=== PATIENT | male | born 1990 | race Caucasian/White ===

== ENCOUNTER 2018-08-06 19:07 | Inpatient (IN) | payer OTHER ==
--- NOTE | 2018-08-07 05:39 | HP ---
CIWA Score Nausea/Vomitin (vomiting x 1) Muscle Tremors: 4-Moderate,w/Arms Extend Anxiety: 3 Agitation: 4-Moderately Restless Paroxysmal Sweats: 3 Orientation: 2-Disoriented Date<2 days Tacttile Disturbances: 0-None Auditory Disturbances: 0-None Visual Disturbances: 0-None Headache: 0-None Present CIWA-Ar Total Score: 18 - Admission Criteria OASAS Guidelines: Admission for Medically Managed Detox: Requires at least one of the followin. CIWA greater than 12 2. Seizures within the past 24 hours 3. Delirium tremens within the past 24 hours 4. Hallucinations within the past 24 hours 5. Acute intervention needed for co occurring medical disorder 6. Acute intervention needed for co occurring psychiatric disorder 7. Severe withdrawal that cannot be handled at a lower level of care (continued vomiting, continued diarrhea, abnormal vital signs) requiring intravenous medication and/or fluids 8. Admission ROS [facility] Chief Complaint: Alcohol withdrawal symptoms Allergies/Adverse Reactions: Allergies Allergy/AdvReac Type Severity Reaction Status Date / Time No Known Allergies Allergy Verified 08/07/18 05:35 History of Present Illness: 27 years old male with a long history of alcohol dependence (patient reports from age 6 years) is seeking admission to detox. Patient has been in previous detox at [facility] and reports a year of sobriety. He has medical history of hypertension. He denies suicidal ideation at this time Exam Limitations: No Limitations - Ebola screening Have you traveled outside of the country in the last 21 days: No (N) Have you had contact with anyone from an Ebola affected area: No Do you have a fever: No - Review of Systems Constitutional: Chills, Loss of Appetite, Changes in sleep, Weakness, Weight Stable EENT: reports: No Symptoms Reported Respiratory: reports: No Symptoms reported Cardiac: reports: No Symptoms Reported GI: reports: Poor Appetite, Poor Fluid Intake, Vomiting, Abdominal cramping : reports: No Symptoms Reported Musculoskeletal: reports: Back Pain Integumentary: reports: Dryness Neuro: reports: Tremors Endocrine: reports: No Symptoms Reported Hematology: reports: No Symptoms Reported Psychiatric: reports: Mood/Affect Appropiate, Orientated x3, Anxious Other Systems: Reviewed and Negative Patient History - Patient Medical History Hx Anemia: No Hx Asthma: No Hx Chronic Obstructive Pulmonary Disease (COPD): No Hx Cancer: No Hx Cardiac Disorders: No Hx Congestive Heart Failure: No Hx Hypertension: Yes (Clonidine) Hx Hypercholesterolemia: No Hx Pacemaker: No HX Cerebrovascular Accident: No Hx Seizures: No Hx Dementia: No Hx Diabetes: No Hx Gastrointestinal Disorders: No Hx Liver Disease: No Hx Genitourinary Disorders: No Hx Sexually Transmitted Disorders: No Hx Renal Disease (ESRD): No Hx Thyroid Disease: No Hx Human Immunodeficiency Virus (HIV): No Hx Hepatitis C: No Hx Depression: No Hx Suicide Attempt: No Hx Bipolar Disorder: No Hx Schizophrenia: No - Patient Surgical History Past Surgical History: Yes Hx Appendectomy: Yes (20 years ago) - PPD History Previous Implant?: Yes Documented Results: Negative w/o proof Implanted On Prior [facility] Admission?: No PPD to be Administered?: Yes - Reproductive History Patient is a Female of Child Bearing Age (11 -55 yrs old): No (male) - Smoking Cessation Smoking history: Current every day smoker Have you smoked in the past 12 months: Yes Aproximately how many cigarettes per day: 10 Hx Chewing Tobacco Use: No Initiated information on smoking cessation: Yes 'Breaking Loose' booklet given: 07/29/18 - Substance & Tx. History Hx Alcohol Use: Yes Hx Substance Use: Yes Substance Use Type: Alcohol, Cocaine, Prescribed Hx Substance Use Treatment: Yes ([facility]) - Substances abused Alcohol Substance route: Oral Frequency: Daily Amount used: [place] 1 pint Age of first use: 6 Date of last use: 08/06/18 Family Disease History - Family Disease History Family Disease History: Diabetes: Father (Alcoholic), Other: Father, Mother ( Alcoholic) Admission Physical Exam S - Vital Signs Vital Signs: Vital Signs - 24 hr 08/07/18 05:11 Temperature 97.2 F L Pulse Rate 47 L Respiratory 16 Rate Blood Pressure 147/86 - Physical General Appearance: Yes: Moderate Distress, Tremorous, Irritable, Anxious HEENTM: Yes: Within Normal Limits Respiratory: Yes: Lungs Clear, Normal Breath Sounds, No Respiratory Distress Neck: Yes: Supple, Trachea in good position Breast: Yes: Breast Exam Deferred Cardiology: Yes: Bradycardia Abdominal: Yes: Normal Bowel Sounds Genitourinary: Yes: Within Normal Limits Back: Yes: Normal Inspection Musculoskeletal: Yes: Within Normal Limits Extremities: Yes: Tremors Neurological: Yes: kettle firer II-XII NML intact, Fully Oriented, Motor Strength 5/5 Integumentary: Yes: Warm Lymphatic: Yes: Within Normal Limits Cleared for Admission [facility] - Detox or Rehab [facility] Level of Care: Medically Managed Detox Regimen/Protocol: Librium Breathalyzer - Breathalyzer Breathalyzer: 0 Vital Signs - Vital Signs Vital signs refused: No Temperature: 97.2 F Temperature source: Oral Pulse Rate: 47 Respiratory Rate: 16 Blood Pressure: 147/86 BP Location: Left Arm - Height Height: 5 ft 4 in - Weight Weight: 180 lb Weight measurement method: Standing scale - BMI Body Mass Index (BMI): 30.9 - Bowel Function Bowel Movement: No Urine Drug Screen - Test Device Lot number: [id number] Expiration date: 04/18/20 - Control Is test valid?: Yes - Results Drug screen NEGATIVE: No Urine drug screen results: THC-Marijuana, GREGORIA-Cocaine, MTD-Methadone, BZO- Benzodiazepines Inpatient Rehab Admission - Rehab Decision to Admit Inpatient rehab admission?: No
[2018-08-07 05:48] VITALS: BMI 30.9
[2018-08-07] MEDS ORDERED: BISMUTH SUBSALICYLATE 524 MG/30 ML UD PO PRN (05:48)
[2018-08-07] MEDS ORDERED: ACETAMINOPHEN 325 MG TABLET (FP) PO PRN ×2 (05:48)
[2018-08-07] MEDS ORDERED: MAG HYDROX/AL HYDROX/SIMETH 30 ML UNIT-DOSE CUP PO PRN (05:48)
[2018-08-07] MEDS ORDERED: MAGNESIUM HYDROX 2400MG/30ML ORAL SUSPENSION 30 ML CUP PO PRN (05:48)
[2018-08-07] MEDS ORDERED: hydrOXYzine PAMOATE 25 MG CAPSULE (FP) PO PRN (05:48)
[2018-08-07] MEDS ORDERED: chlordiazePOXIDE HCL 25 MG CAPSULE PO PRN (05:48)
[2018-08-07] MEDS ORDERED: MAGNESIUM CITRATE 300 ML BOTTLE PO PRN (05:48)
[2018-08-07] MEDS ORDERED: IBUPROFEN 400 MG TABLET (FP) PO PRN (05:48)
[2018-08-07] MEDS ORDERED: NICOTINE POLACRILEX 2 MG GUM BUC PRN (05:48)
[2018-08-07] MEDS ORDERED: MENTHOL/PHENOL 1 EACH UD MM PRN (05:48)
--- NOTE | 2018-08-07 06:51 | PN ---
S Progress Note Note: Patient vomited x 1. Vital Signs Temperature 97.2 F L 08/07/18 06:38 Pulse Rate 47 L 08/07/18 06:38 Respiratory Rate 16 08/07/18 06:38 Blood Pressure 147/86 08/07/18 06:38 O2 Sat by Pulse Oximetry (%) Action: Tigan 200mg IM ordered
[2018-08-07] MEDS: chlordiazePOXIDE HCL 25 MG CAPSULE PO SCH ×4 (07:25→22:23)
[2018-08-07] MEDS ORDERED: TRIMETHOBENZAMIDE HCL 200MG/2ML INJ IM ONE (07:30)
[2018-08-07] MEDS ORDERED: METHADONE HCL 40 MG DISPERSABLE TABLET PO ONE (09:45)
[2018-08-07] MEDS: NICOTINE 14 MG/24 HOURS TOPICAL PATCH TD SCH (11:12)
[2018-08-07] MEDS: PRENATAL VITAMINS W/ FOLIC ACID TABLET (FP) PO SCH (11:12)
[2018-08-07] MEDS ORDERED: TRIMETHOBENZAMIDE HCL 300 MG CAPSULE PO PRN (11:33)
--- NOTE | 2018-08-07 11:35 | PN ---
[facility] CIWA - CIWA Score Nausea/Vomitin-No Nausea/No Vomiting Muscle Tremors: 3 Anxiety: 2 Agitation: 3 Paroxysmal Sweats: 2 Orientation: 0-Oriented Tacttile Disturbances: 0-None Auditory Disturbances: 0-None Visual Disturbances: 0-None Headache: 0-None Present CIWA-Ar Total Score: 10 S Progress Note (SOAP) Subjective: nausea sweats body aches tired agitation Objective: 08/07/18 11:34 Vital Signs Temperature 97.9 F 08/07/18 08:16 Pulse Rate 49 L 08/07/18 08:16 Respiratory Rate 16 08/07/18 08:16 Blood Pressure 137/80 08/07/18 08:16 O2 Sat by Pulse Oximetry (%) pending labs aaox3 ambulating no acute distress Assessment: 08/07/18 11:34 withdrawal sx Plan: continue detox increase fluids tigan po prn
[2018-08-07] MEDS: MELATONIN 5 MG TABLETS PO PRN (22:23)
[2018-08-07] MEDS: THIAMINE HCL 100 MG TABLET (FP) PO SCH (22:23)
[2018-08-08] MEDS ORDERED: chlordiazePOXIDE HCL 25 MG CAPSULE PO SCH (05:00)
[2018-08-08] MEDS: METHADONE HCL 40 MG DISPERSABLE TABLET PO SCH (06:13)
[2018-08-08 09:39] LABS: HEMATOCRIT 41.2 % (35.4-49); HEMOGLOBIN 13.9 GM/dL (11.7-16.9); MCH 29.8 pg (25.7-33.7); MCHC 33.9 g/dl (32.0-35.9); MEAN PLT VOLUME 8.7 fl (7.5-11.1); PLATELET COUNT 303 K/MM3 (134-434); RBC 4.68 M/mm3 (4.00-5.60); RDW 14.3 % (11.9-15.9); WHITE BLOOD COUNT 7.5 K/mm3 (4.0-10.0)
--- NOTE | 2018-08-08 09:42 | PN ---
[facility] CIWA - CIWA Score Nausea/Vomitin-No Nausea/No Vomiting Muscle Tremors: 3 Anxiety: 2 Agitation: 3 Paroxysmal Sweats: 1-Minimal Palms Moist Orientation: 0-Oriented Tacttile Disturbances: 1-Very Mild Itch/Numbness Auditory Disturbances: 0-None Visual Disturbances: 0-None Headache: 0-None Present CIWA-Ar Total Score: 10 [facility] Progress Note (SOAP) Subjective: anxiety sweats body aches shakes skin itchy Objective: 08/08/18 10:59 Vital Signs Temperature 97.9 F 08/08/18 09:28 Pulse Rate 64 08/08/18 09:28 Respiratory Rate 18 08/08/18 09:28 Blood Pressure 127/82 08/08/18 09:28 O2 Sat by Pulse Oximetry (%) Laboratory Tests 08/08/18 08/08/18 07:30 07:30 WBC 7.5 RBC 4.68 Hgb 13.9 Hct 41.2 MCV 88.0 MCH 29.8 MCHC 33.9 RDW 14.3 Plt Count 303 MPV 8.7 Sodium 138 Potassium 3.9 Chloride 104 Carbon Dioxide 24 Anion Gap 9 BUN 16.8 Creatinine 1.0 Est GFR (CKD-EPI)AfAm 117.36 Est GFR (CKD-EPI)NonAf 101.26 Random Glucose 88 Calcium 8.8 Total Bilirubin 0.3 AST 28 ALT 28 Alkaline Phosphatase 88 Total Protein 6.9 Albumin 3.4 labs noted aaox3 ambulating no acute distress Assessment: 08/08/18 10:59 withdrawal sx skin assessed; no rash noted. itchy skin may be related to his withdrawals Plan: continue detox increase fluids benadryl 25mg prn lac hydrin lotion
[2018-08-08 10:02] LABS: ALBUMIN 3.4 g/dl (3.4-5.0); BILIRUBIN,TOTAL 0.3 mg/dL (0.2-1); BLOOD UREA NITROGEN 16.8 mg/dL (7-18); CALCIUM 8.8 mg/dL (8.5-10.1); POTASSIUM 3.9 mmol/L (3.5-5.1); TOT PROT 6.9 g/dl (6.4-8.2)
[2018-08-08] MEDS: NICOTINE 14 MG/24 HOURS TOPICAL PATCH TD SCH (10:14)
[2018-08-08] MEDS: PRENATAL VITAMINS W/ FOLIC ACID TABLET (FP) PO SCH (10:14)
[2018-08-08] MEDS: diazePAM 5 MG TABLET PO PRN ×2 (10:16→19:09)
[2018-08-08] MEDS: diphenhydrAMINE HCL 25 MG CAPSULE (FP) PO PRN ×2 (10:18→22:21)
[2018-08-08] MEDS ORDERED: AMMONIUM LACTATE 12% LOTION 225 GM BOTTLE TP PRN (11:02)
--- NOTE | 2018-08-08 12:34 | EKG ---
Test Reason : Blood Pressure : / mmHG Vent. Rate : 050 BPM Atrial Rate : 050 BPM P-R Int : 162 ms QRS Dur : 086 ms QT Int : 468 ms P-R-T Axes : 031 -07 007 degrees QTc Int : 426 ms SINUS BRADYCARDIA MINIMAL VOLTAGE CRITERIA FOR LVH, MAY BE NORMAL VARIANT BORDERLINE ECG NO PREVIOUS ECGS AVAILABLE Confirmed by JULI JENKINS, CLAUDIA ([id number]) on 08/08/2018 12:33:35 PM Referred By: TIMOTEO TAM Confirmed By:CLAUDIA BUSTOS MD
[2018-08-08] MEDS: diazePAM 5 MG TABLET PO SCH ×2 (14:28→22:21)
[2018-08-08] MEDS: THIAMINE HCL 100 MG TABLET (FP) PO SCH (22:21)
[2018-08-08] MEDS: METHOCARBAMOL 500 MG TABLET PO PRN (22:22)
[2018-08-09] MEDS ORDERED: chlordiazePOXIDE HCL 10 MG CAPSULE PO SCH (05:00)
[2018-08-09] MEDS ORDERED: chlordiazePOXIDE HCL 10 MG CAPSULE PO PRN (05:00)
[2018-08-09] MEDS: METHADONE HCL 40 MG DISPERSABLE TABLET PO SCH (05:19)
[2018-08-09] MEDS: diazePAM 5 MG TABLET PO SCH ×3 (05:19→22:42)
[2018-08-09] MEDS: NICOTINE 14 MG/24 HOURS TOPICAL PATCH TD SCH (10:48)
[2018-08-09] MEDS: diazePAM 5 MG TABLET PO PRN ×2 (10:48→17:15)
[2018-08-09] MEDS: PRENATAL VITAMINS W/ FOLIC ACID TABLET (FP) PO SCH (10:48)
--- NOTE | 2018-08-09 11:28 | PN ---
S CIWA - CIWA Score Nausea/Vomitin-No Nausea/No Vomiting Muscle Tremors: 2 Anxiety: 2 Agitation: 1-Slight > Activity Paroxysmal Sweats: 1-Minimal Palms Moist Orientation: 0-Oriented Tacttile Disturbances: 0-None Auditory Disturbances: 0-None Visual Disturbances: 0-None Headache: 0-None Present CIWA-Ar Total Score: 6 [facility] Progress Note (SOAP) Subjective: sweats nausea cut myself shaving Objective: 08/09/18 11:33 Vital Signs Temperature 98.2 F 08/09/18 10:00 Pulse Rate 83 08/09/18 10:00 Respiratory Rate 18 08/09/18 10:00 Blood Pressure 127/81 08/09/18 10:00 O2 Sat by Pulse Oximetry (%) aaox3 ambulating no acute distress Assessment: 08/09/18 11:47 mild withdrawal sx small abrasion as a result of shaving Plan: continue detox bacitracin oint ordered d/c in am
[2018-08-09] MEDS: MELATONIN 5 MG TABLETS PO PRN (22:42)
[2018-08-09] MEDS: THIAMINE HCL 100 MG TABLET (FP) PO SCH (22:42)
[2018-08-09] MEDS: diphenhydrAMINE HCL 25 MG CAPSULE (FP) PO PRN (22:42)
[2018-08-09] MEDS: METHOCARBAMOL 500 MG TABLET PO PRN (22:43)
[2018-08-10] MEDS ORDERED: chlordiazePOXIDE HCL 10 MG CAPSULE PO SCH (05:00)
[2018-08-10] MEDS: METHADONE HCL 40 MG DISPERSABLE TABLET PO SCH (05:58)
[2018-08-10] MEDS ORDERED: diazePAM 5 MG TABLET PO ONE (06:00)
[2018-08-10 08:21] VITALS: BP 112/78; PULSE 62; TEMP 97
[2018-08-10] MEDS: NICOTINE 14 MG/24 HOURS TOPICAL PATCH TD SCH (09:23)
[2018-08-10] MEDS: PRENATAL VITAMINS W/ FOLIC ACID TABLET (FP) PO SCH (09:23)
--- NOTE | 2018-08-10 12:45 | DS ---
[facility] Detox Discharge Summary Admission Date: 08/07/18 Discharge Date: 08/10/18 - History Present History: Alcohol Dependence - Physical Exam Results Vital Signs: Vital Signs Temperature 97 F L 08/10/18 08:21 Pulse Rate 62 08/10/18 08:21 Respiratory Rate 18 08/10/18 08:21 Blood Pressure 112/78 08/10/18 08:21 O2 Sat by Pulse Oximetry (%) - Treatment Hospital Course: Detox Protocol Followed, Detoxed Safely, Responded well, Discharged Condition Good - Medication Discharge Medications: Ambulatory Orders NK [No Known Home Medication] 08/07/18 - Diagnosis (1) Alcohol dependence Status: Chronic Qualifiers: Substance use status: uncomplicated Qualified Code(s): F10.20 - Alcohol dependence, uncomplicated - AMA Did Patient Leave Against Medical Advice: No
== END 2018-08-10 09:24 | disposition home or self-care (01) | DRG 773 ==
LOC: YASAS 19:07 → Y6N 08-07 05:26
PROVIDERS: ADMIT Surgery; ATTEND Surgery
PROC: HZ2ZZZZ Detoxification Services for Substance Abuse Treatment (ICD-10-PCS; principal; 2018-08-07)
DX: F10.20 Alcohol dependence, uncomplicated (principal); F11.20 Opioid dependence, uncomplicated; F14.20 Cocaine dependence, uncomplicated; F13.20 Sedative, hypnotic or anxiolytic dependence, uncomplicated; F12.20 Cannabis dependence, uncomplicated; F17.210 Nicotine dependence, cigarettes, uncomplicated; I10 Essential (primary) hypertension; Z59.0 Homelessness
CPT/HCPCS: 36415; 80053; 85027; 86593; 93005; 93010